=== PATIENT | female | born 1950 | race Caucasian/White ===

== ENCOUNTER 2018-11-06 10:23 | Outpatient (CLI) | payer MEDICARE, MEDICAID | END 2018-11-06 10:24 | disposition home or self-care (01) | LOC: MADLAB 10:23 | PROVIDERS: ATTEND Family Medicine | DX: B96.3 Hemophilus influenzae [H. influenzae] as the cause of diseases classified elsewhere (principal) | CPT/HCPCS: 87804 ==

== ENCOUNTER 2020-06-25 15:51 | Emergency (ER) | payer MEDICARE, OTHER ==
--- NOTE | 2020-06-25 17:14 | RAD ---
Exam: Chest one view HISTORY:Dyspnea Comparison: 09/04/2013 FINDINGS: Cardiac silhouette: Normal Aorta: Unremarkable Pulmonary vessels: Normal Costophrenic angles: Clear LUNGS: Diminished lung volumes, likely due to a poor inspiratory effort. Subsegmental atelectasis in the left midlung. No masses or consolidation. Pneumothorax: None Osseous abnormalities: None IMPRESSION: 1. Diminished lung volumes, likely due to a poor inspiratory effort. 2. Subsegmental atelectasis left midlung.
== END 2020-06-25 23:33 ==
LOC: MADERS 15:51
DX: U07.1 COVID-19 (principal); G30.9 Alzheimer's disease, unspecified; F02.80 Dementia in other diseases classified elsewhere, unspecified severity, without behavioral disturbance, psychotic disturbance, mood disturbance, and anxiety
CPT/HCPCS: 71045